=== PATIENT | female | born 1980 | race Caucasian/White ===

== ENCOUNTER → 2017-06-04 | Outpatient (CLI) | payer BC ==
--- NOTE | 2017-06-04 16:10 | RAD ---
AP abdomen radiograph 06/04/2017 Clinical history: Abdominal pain and constipation since earlier today. An AP digital radiograph of the abdomen/pelvis was obtained. The lung bases are not included on this radiograph. The abdominal bowel gas pattern is nonobstructive. A moderate amount of stool is seen throughout the colon. No radiopaque calculus is seen. The osseous structures are grossly intact. Impression: Nonobstructive bowel gas pattern. A moderate amount of stool is seen throughout the colon.
== END | disposition home or self-care (01) ==
LOC: DXRAD 15:35
PROVIDERS: ATTEND Nurse Practitioner Family
DX: K59.00 Constipation, unspecified (principal)
CPT/HCPCS: 74000

== ENCOUNTER 2017-08-03 23:03 | Emergency (ER) | payer BC ==
[~2017-08-03] VITALS: Ht 177.8 cm; Wt 74.4 kg
[2017-08-03 23:03] VITALS: BP 138/83
[2017-08-03] MEDS ORDERED: SIMETHICONE 80 MG TAB.CHEW PO PRN (23:45)
[2017-08-03] MEDS ORDERED: LIDO:MAALOX 1:1 20 ML SINGLE DOSE PO ONE (23:45)
[2017-08-03] MEDS ORDERED: IV NORMAL SALINE 1,000ML 1,000 ML IV SCH (23:51)
[2017-08-04] MEDS ORDERED: FAMOTIDINE 20 MG/2 ML VIAL IVP ONE
[2017-08-04] MEDS ORDERED: LIDO:MAALOX 1:1 20 ML SINGLE DOSE PO ONE
[2017-08-04 00:08] LABS: BASO % 0 % (0-3); EOS # 0.1 x10^3/uL (0.0-0.7); EOS % 1 % (0-3); HEMATOCRIT 38.4 % (36.0-47.0); HEMOGLOBIN 13.4 g/dL (12.0-15.5); LYMPH # 3.6 x10^3/uL (1.0-4.8); LYMPH % 36 % (24-48); MEAN CORPUSCULAR HEMOGLOBIN 31 pg (25-35); MEAN CORPUSCULAR HGB CONC 35 g/dL (31-37); MEAN CORPUSCULAR VOLUME 89 fL (79-100); MONO # 0.8 x10^3/uL (0.0-1.1); MONO % 8 % (0-9); NEUT # 5.6 x10^3uL (1.8-7.7); NEUT % 56 % (31-73); PLATELET COUNT 307 x10^3/uL (140-400); RED BLOOD COUNT 4.33 x10^6/uL (3.50-5.40); RED CELL DISTRIBUTION WIDTH 12.9 % (11.5-14.5); WHITE BLOOD COUNT 10.1 x10^3/uL (4.0-11.0)
[2017-08-04 00:20] LABS: ALBUMIN 4.3 g/dL (3.4-5.0); ALBUMIN/GLOBULIN RATIO 1.2 (1.0-1.7); CREATININE 0.8 mg/dL (0.6-1.0); GFR 81.2; POTASSIUM 3.6 mmol/L (3.5-5.1); TOTAL BILIRUBIN 0.4 mg/dL (0.2-1.0); TOTAL PROTEIN 7.9 g/dL (6.4-8.2)
[2017-08-04 00:25] LABS: BILIRUBIN,URINE NEG (NEG); CLARITY,URINE CLEAR; COLOR,URINE STRAW; GLUCOSE,URINE NEG (NEG)
[2017-08-04 00:26] LABS: BACTERIA,URINE FEW /HPF (0-FEW); NITRITE,URINE NEG (NEG); RBC,URINE 0 /HPF (0-2); SQUAMOUS EPITHELIAL CELL,UR FEW /LPF; UROBILINOGEN,URINE 0.2 mg/dL (0.2 mg/dL)
--- NOTE | 2017-08-04 01:03 | PHYS DOC ---
General Chief Complaint: ABDOMINAL PAIN Stated Complaint: ABDOMINAL PAIN,ACID REFLEX Time Seen by MD: 23:06 Source: patient Exam Limitations: no limitations Problems: History of Present Illness Initial Comments Pt is 37/F to ED c/o abdominal pain and reflux. Pt states for past few hours she's had left sided abdominal discomfort with burping and burning radiating up her chest to her throat. She has prior history of GERD and tries to observe GERD diet. She denies any n/v/d denies recent PO intake last BM today "normal." ED VSS, pt is dramatic. No urinary symptoms, no etoh/NSAIDs pain "moderate" burning. No prearrival treatment has history of "intestine surgery." No fever/chills/travel/bad food exposure. Timing/Duration: 1-3 hours Severity: moderate Modifying Factors: worse with eating Associated Symptoms: other Allergies: Coded Allergies: amoxicillin (Verified Allergy, Unknown, 08/03/17) clavulanic acid (Verified Allergy, Unknown, 08/03/17) nitrofurantoin (Verified Allergy, Unknown, 08/03/17) Past Medical History Medical History: other (anxiety, GERD) Surgical History: other ("intestine surgery") Social History Smoker: non-smoker Alcohol: none Drugs: none Review of Systems Constitutional: denies chills, denies diaphoresis, denies fever, denies malaise Respiratory: denies cough, denies shortness of breath Cardiovascular: denies chest pain, denies palpitations Gastrointestinal: see HPI Genitourinary: denies dysuria, denies frequency, denies hematuria Musculoskeletal: denies back pain, denies joint swelling, denies neck pain Psychiatric/Neurological: denies headache, denies numbness, denies paresthesia Hematologic/Lymphatic: denies blood clots, denies easy bleeding, denies easy bruising Physical Exam General Appearance: no apparent distress (anxious) Ear, Nose, Throat: hearing grossly normal, normal ENT inspection, normal pharynx Neck: non-tender, supple Respiratory: normal breath sounds, no respiratory distress Cardiovascular: normal peripheral pulses, regular rate, rhythm Gastrointestinal: soft (ND, BS normal, LUQ/epigastric pain to light skin touch , neg mcburney/shane) Back: no CVA tenderness, no vertebral tenderness Extremities: non-tender, normal inspection Neurologic/Psychiatric: 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 Simethicone/GI cocktail given PO 0102: Time in department 1h 59min, lipase remains pending. Pt with prolonged ED course due to laboratory delay. Pt requesting discharge as she feels better, simultaneously lipase is resulted. UA with SE contamination and trace LE, but given lack of suprapubic/flank pain /tenderness will await C/S. Pt expressed agreement/understanding with treatment plan. Departure Time of Disposition: : Disposition: HOME, SELF-CARE Diagnosis: abdominal pain, GERD Condition: GOOD Patient Instructions: Gastroesophageal Reflux Disease, Adult, [id number] Additional Instructions: Continue GERD precautions (see handout). OTC pepcid and simethicone for GERD and gas discomfort as needed. Aggressive hydration with gatorade, water, to prevent dehydration. Follow up with your doctor in 3-5 days for recheck and urine culture results. Return to ED with new or changing symptoms. JULISA RADER DO Aug 04, 2017 01:02
[2017-08-04] MEDS ORDERED: SIME80TA14 PO (01:25)
[2017-08-04] MEDS ORDERED: ONDANSETRON 4MG ODT 4TABLET STARTPACK. PO ONE ×2 (01:29→01:30)
--- NOTE | 2017-08-04 07:19 | RAD ---
Acute abdomen series with chest, 3 views, 08/04/2017: History: Left upper quadrant pain and nausea The abdominal gas pattern is unremarkable. No free air is seen in the abdomen. There is no evidence of organomegaly or abnormal abdominal calcification. The heart size is normal. The lungs are clear. There is no evidence of pleural fluid. IMPRESSION: No acute abdominal abnormality is detected.
== END 2017-08-04 01:35 | disposition home or self-care (01) ==
LOC: ER 23:03
DX: K21.9 Gastro-esophageal reflux disease without esophagitis (principal); F41.9 Anxiety disorder, unspecified; Z88.1 Allergy status to other antibiotic agents; Z88.8 Allergy status to other drugs, medicaments and biological substances
CPT/HCPCS: 36415; 74022; 80053; 81001; 83690; 85025; 87086; 96361; 96374; 99285; Q0162; S0028; J7030

== ENCOUNTER → 2019-10-07 | Outpatient (CLI) | payer BC ==
[~2019-10-07] MED LIST: SIME80TA14 PO
[2019-10-07 15:18] LABS: BASO % 0 % (0-3); EOS % 0 % (0-3); HEMATOCRIT 40.8 % (36.0-47.0); HEMOGLOBIN 13.8 g/dL (12.0-15.5); LYMPH # 1.6 x10^3/uL (1.0-4.8); LYMPH % 19 % (24-48); MEAN CORPUSCULAR HEMOGLOBIN 31 pg (25-35); MEAN CORPUSCULAR HGB CONC 34 g/dL (31-37); MEAN CORPUSCULAR VOLUME 92 fL (79-100); MONO # 0.8 x10^3/uL (0.0-1.1); MONO % 9 % (0-9); NEUT # 6.2 x10^3uL (1.8-7.7); NEUT % 71 % (31-73); PLATELET COUNT 296 x10^3/uL (140-400); RED BLOOD COUNT 4.43 x10^6/uL (3.50-5.40); RED CELL DISTRIBUTION WIDTH 13.2 % (11.5-14.5); WHITE BLOOD COUNT 8.7 x10^3/uL (4.0-11.0)
== END | disposition home or self-care (01) ==
LOC: LAB 13:27
PROVIDERS: ATTEND Nurse Practitioner Women's Health
DX: R53.83 Other fatigue (principal)
CPT/HCPCS: 36415; 84443; 85025

== ENCOUNTER → 2020-06-15 | Outpatient (CLI) | payer BC ==
[~2020-06-15] MED LIST changes: +OMEP20CA16 PO; +PANT40TA3 PO
== END | disposition home or self-care (01) ==
LOC: LAB 08:00
PROVIDERS: ATTEND Registered Nurse
DX: Z01.818 Encounter for other preprocedural examination (principal); Z11.59 Encounter for screening for other viral diseases; K21.9 Gastro-esophageal reflux disease without esophagitis; R13.10 Dysphagia, unspecified
CPT/HCPCS: U0003-CS

== ENCOUNTER → 2020-06-18 | Day surgery (SDC) | payer BC ==
[~2020-06-18] MED LIST changes: +IPRATRPIUM/ALBUTEROL 0.5/2.5MG 3 ML NEBU. NEB PRN; +IV RINGERS SOLUTION,LACTATED 1,000 ML IV SCH; +MIDAZOLAM HCL PF 2 MG/2 ML VIAL. IV ONE; +ONDANSETRON PF 4 MG/2 ML VIAL. IV PRN; +PROPOFOL 10,000 MCG/ML (20ML) VIAL IV ONE
[2020-06-18 13:14] VITALS: BP 120/78
== END | disposition home or self-care (01) ==
LOC: SURG 10:33
PROVIDERS: ATTEND Internal Medicine Gastroenterology
DX: R13.10 Dysphagia, unspecified (principal); K29.50 Unspecified chronic gastritis without bleeding; K21.9 Gastro-esophageal reflux disease without esophagitis; F41.9 Anxiety disorder, unspecified; K31.89 Other diseases of stomach and duodenum; Z79.899 Other long term (current) drug therapy; Z98.890 Other specified postprocedural states; Z88.8 Allergy status to other drugs, medicaments and biological substances; Z88.1 Allergy status to other antibiotic agents
CPT/HCPCS: 43239; 43450; 81025; 88305; 88342; J2704; J7120; 94640

== ENCOUNTER → 2020-07-07 | Outpatient (CLI) | payer BC ==
[2020-06-18 13:14] VITALS: BP 120/78
[~2020-07-07] MED LIST changes: -IPRATRPIUM/ALBUTEROL 0.5/2.5MG 3 ML NEBU. NEB PRN; -IV RINGERS SOLUTION,LACTATED 1,000 ML IV SCH; -MIDAZOLAM HCL PF 2 MG/2 ML VIAL. IV ONE; -ONDANSETRON PF 4 MG/2 ML VIAL. IV PRN; -PROPOFOL 10,000 MCG/ML (20ML) VIAL IV ONE
--- NOTE | 2020-07-07 12:25 | RAD ---
EXAM: Abdomen sonogram. HISTORY: Left upper quadrant pain. TECHNIQUE: Sonographic imaging of the abdomen was performed. COMPARISON: None. FINDINGS: The liver is normal in size. No focal hepatic lesion is seen. The common bile duct is normal in caliber. The gallbladder is unremarkable. The kidneys are normal in size. The pancreas, spleen, aorta and inferior vena cava are unremarkable. IMPRESSION: Unremarkable abdomen sonogram. Electronically signed by: Selam Samano MD (07/07/2020 12:23 PM) [facility]
== END | disposition home or self-care (01) ==
LOC: US 09:45
PROVIDERS: ATTEND Internal Medicine Gastroenterology
DX: R10.12 Left upper quadrant pain (principal)
CPT/HCPCS: 76700

== ENCOUNTER → 2020-07-16 | Outpatient (CLI) | payer BC ==
[2020-06-18 13:14] VITALS: BP 120/78
--- NOTE | 2020-07-16 13:50 | RAD ---
EXAM: Nuclear gastric emptying scan. HISTORY: Pain. COMPARISON: None. TECHNIQUE: Serial static images were obtained over the stomach following oral administration of 2 mCi 99m-Tc sulfur colloid. FINDINGS: The stomach empties into the small bowel without evidence of reflux in the area of the esophagus. There is 56 percent retained tracer activity within stomach at one hour (normal 34.8 percent to 91 percent). There is 21 percent retained tracer activity within stomach at 2 hours (normal 2.7 percent to 60 percent). There is 10 percent retained tracer activity within stomach at 3 hours (normal 0.5 percent to 28 percent). There is 5 percent retained tracer activity within stomach at 4 hours (normal 0.0 percent to 10 percent). The estimated time for half emptying of gastric contents, i.e. 'gastric emptying time' is 69 minutes (normal is 66 +/- 22 minutes). IMPRESSION: Normal gastric emptying scan. Electronically signed by: Selam Samano MD (07/16/2020 1:47 PM) [id number]
== END | disposition home or self-care (01) ==
LOC: NM 08:20
PROVIDERS: ATTEND Internal Medicine Gastroenterology
DX: R10.9 Unspecified abdominal pain (principal)
CPT/HCPCS: 78264; A9541

== ENCOUNTER → 2020-07-27 | Outpatient (CLI) | payer BC ==
[2020-06-18 13:14] VITALS: BP 120/78
== END | disposition home or self-care (01) ==
LOC: LAB 13:56
PROVIDERS: ATTEND Registered Nurse
DX: Z01.812 Encounter for preprocedural laboratory examination (principal); Z12.11 Encounter for screening for malignant neoplasm of colon; Z20.828 Contact with and (suspected) exposure to other viral communicable diseases
CPT/HCPCS: U0003-CS

== ENCOUNTER → 2020-07-30 | Day surgery (SDC) | payer BC ==
[~2020-07-30] MED LIST changes: +IPRATRPIUM/ALBUTEROL 0.5/2.5MG 3 ML NEBU. NEB PRN; +IV RINGERS SOLUTION,LACTATED 1,000 ML IV SCH; +LIDOCAINE 2% PF 5 ML VIAL. ONE; +MIDAZOLAM HCL PF 2 MG/2 ML VIAL. IV ONE; +MIDAZOLAM HCL PF 2 MG/2 ML VIAL. ONE; +ONDANSETRON PF 4 MG/2 ML VIAL. IV PRN; +PROPOFOL 10,000 MCG/ML (20ML) VIAL IV ONE
[2020-07-30 11:41] LABS: U PREG PATIENT NEGATIVE (NEG)
[2020-07-30 13:45] VITALS: BP 121/78
== END | disposition home or self-care (01) ==
LOC: SURG 10:54
PROVIDERS: ATTEND Internal Medicine Gastroenterology
DX: K62.5 Hemorrhage of anus and rectum (principal); R19.4 Change in bowel habit; K64.8 Other hemorrhoids; K21.9 Gastro-esophageal reflux disease without esophagitis; F41.9 Anxiety disorder, unspecified; Z79.899 Other long term (current) drug therapy; Z88.1 Allergy status to other antibiotic agents; Z88.8 Allergy status to other drugs, medicaments and biological substances; Z98.890 Other specified postprocedural states
CPT/HCPCS: 45378; 81025; J2001; J2250; J2704; J3010; J7120

== ENCOUNTER 2020-10-11 13:54 | Emergency (ER) | payer BC ==
[~2020-10-11] VITALS: Ht 180.3 cm; Wt 78.0 kg
[~2020-10-11 13:54] MED LIST changes: -IPRATRPIUM/ALBUTEROL 0.5/2.5MG 3 ML NEBU. NEB PRN; -IV RINGERS SOLUTION,LACTATED 1,000 ML IV SCH; -LIDOCAINE 2% PF 5 ML VIAL. ONE; -MIDAZOLAM HCL PF 2 MG/2 ML VIAL. IV ONE; -MIDAZOLAM HCL PF 2 MG/2 ML VIAL. ONE; -ONDANSETRON PF 4 MG/2 ML VIAL. IV PRN; -PROPOFOL 10,000 MCG/ML (20ML) VIAL IV ONE
--- NOTE | 2020-10-11 14:04 | PHYS DOC ---
Past History Past Medical History: Anxiety, GERD Past Surgical History: Other Alcohol Use: None Drug Use: None Adult General HPI HPI Patient is a 40-year-old Covid positive patient who presents for shortness of breath. States she was diagnosed with Covid 5 days ago, is currently on day 7 of symptoms. Has classic URI-like symptoms with shortness of breath and dry nonproductive cough. Patient reports she is concerned about potential developing pneumonia as she feels weak and fatigued. No fever, no syncope, no falls, no chest pain, no productive cough, no abdominal pain, no nausea vomit diarrhea, no history of hypercoagulable conditions Review of Systems Review of Systems Fourteen body systems of review of systems have been reviewed. See HPI for pertinent positives and negative responses, other borrero all other systems are negative, non-pertinent or non-contributory Allergies Allergies Allergies Coded Allergies Type Severity Reaction Last Updated Verified amoxicillin Allergy Unknown 06/18/20 Yes clavulanic acid Allergy Unknown 08/03/17 Yes nitrofurantoin Allergy Unknown 08/03/17 Yes Physical Exam Physical Exam General: Appears well, non toxic, and comfortable Skin: Warm, dry. Normal for ethnicity. HEENT: Atraumatic. PERRLA. Rhinorrhea and congestion. Nasal turbinates boggy b/l. Moist mucous membranes. Uvula midline. Maintaining secretions. No phonation changes. Neck: Trachea midline. Normal ROM. No stridor. Respiratory: Normal WOB. CTAB w/o w/r/r. No tachypnea. Cardiovascular: Regular rate and rhythm. Normal peripheral perfusion. Abdomen: Soft. Non tender. No distension. Back: Normal ROM. Musculoskeletal: No swelling or deformity. Neuro: Alert and oriented x 4. MAEE. Lymph: No cervical LAD. Psych: Anxious affect with normal mood Current Patient Data Vital Signs Vital Signs Date Time Temp Pulse Resp B/P (MAP) Pulse Ox O2 Delivery O2 Flow Rate FiO2 10/11/20 14:05 98.1 86 16 154/96 (115) 100 EKG EKG [] Radiology/Procedures Radiology/Procedures EXAM: Chest, single view. HISTORY: Shortness of breath. Covid 19. COMPARISON: None. FINDINGS: A frontal view of the chest is obtained. There is no infiltrate, pleural effusion or pneumothorax. The heart is normal in size. IMPRESSION: No acute pulmonary finding. Electronically signed by: Selam Samano MD (10/11/2020 2:47 PM) [id number] Heart Score HEART Score for Chest Pain: HEART Score for Chest Pain Response (Comments) Value History Slighlty/Non-Suspicious 0 Age < 45 0 Risk Factors No Risk Factors 0 Total 0 Risk Factors: Risk Factors: DM, Current or recent (<one month) smoker, HTN, HLP, family history of CAD, obesity. Risk Scores: Risk Factors: DM, Current or recent (<one month) smoker, HTN, HLP, family history of CAD, obesity. Course & Med Decision Making Course & Med Decision Making Given History and Exam I have a lower suspicion for: Emergent CardioPulmonary causes [such as Acute Asthma or COPD Exacerbation, acute Heart Failure or exacerbation, PE, PTX, atypical ACS, PNA]. Emergent Otolaryngeal causes [such as FINGERNAIL SCULPTOR, RPA, Ludwigs, Epiglottitis, EBV]. 1 view chest x-ray performed and unremarkable for any emergent and/or surgical pathology Discussed most likely diagnosis of symptomatic COVID-19 infection. Patient has underlying anxiety which I feel is exacerbating current condition Based on vitals and exam they are nontoxic and stable for discharge. Discussed with the patient all findings and diagnostic testing as well as the need to follow up with PCP for further evaluation and treatment when safe to do so or return to the ED if any new or worsening symptoms. Strict return precautions were also discussed at length with good understanding by patient. Patient voiced understanding and agreement with the plan. Hemodynamically stable at time of disposition. Dragon Disclaimer Dragon Disclaimer This electronic medical record was generated, in whole or in part, using a voice recognition dictation system. PERC Rule for PE PERC Rule for PE Response (Comments) Value Age > 50: No 0 HR > 100: No 0 Sa02 on room air <95%: No 0 Unilateral leg swelling: No 0 Hemoptysis: No 0 Recent surgery or trauma: No 0 Prior PE or DVT: No 0 Hormone use: No 0 Total 0 Departure Departure: Impression: Primary Impression: COVID-19 Disposition: 01 DC HOME SELF CARE/HOMELESS Condition: STABLE Referrals: SELAM BADILLO MD (PCP) Additional Instructions: You were seen for symptoms classic for COVID-19 infection. Your physical exam was reassuring. Your chest x-ray was normal. Continue to quarantine yourself at home away from all other individuals, especially those who are elderly or have any other chronic health issues or an immunocompromised status. You should return to the ED if you develop worsening cough, shortness of breath, chest pain, or any other new or concerning symptoms. Alternate Tylenol and ibuprofen as needed for body aches and pain. You should make sure to drink plenty of fluids and get plenty of rest. As advised, I would start taking a daily antihistamine that is nonsedating such as Claritin or Zyrtec for supportive/symptomatic care of your dry nonproductive cough TEE DANIELS DO Oct 11, 2020 14:04
--- NOTE | 2020-10-11 14:50 | RAD ---
EXAM: Chest, single view. HISTORY: Shortness of breath. Covid 19. COMPARISON: None. FINDINGS: A frontal view of the chest is obtained. There is no infiltrate, pleural effusion or pneumo thorax. The heart is normal in size. IMPRESSION: No acute pulmonary finding. Electronically signed by: Selam Samano MD (10/11/2020 2:47 PM) [id number]
[2020-10-11 15:35] VITALS: BP 125/87
== END 2020-10-11 15:35 | disposition home or self-care (01) ==
LOC: ER 13:54
DX: U07.1 COVID-19 (principal); F41.9 Anxiety disorder, unspecified; K21.9 Gastro-esophageal reflux disease without esophagitis; Z88.1 Allergy status to other antibiotic agents; Z88.8 Allergy status to other drugs, medicaments and biological substances
CPT/HCPCS: 71045; 99283

== ENCOUNTER → 2020-11-23 | Outpatient (CLI) | payer BC ==
[2020-11-23 23:07] LABS: ESTRADIOL LEVEL 292.6 pg/mL (.)
[2020-11-24 00:08] LABS: FSH 3.4 mIU/mL (.); LUTEINIZING HORMONE 7.3 mIU/mL (.)
[2020-11-24 01:08] LABS: HEMOGLOBIN A1C 5.3 % (4.8-5.6)
== END ==
LOC: LAB 14:24
PROVIDERS: ATTEND Nurse Practitioner Women's Health
DX: N92.6 Irregular menstruation, unspecified (principal)
CPT/HCPCS: 36415; 82670; 83001; 83002; 83036; 84443

== ENCOUNTER → 2020-11-30 | Outpatient (CLI) | payer BC ==
--- NOTE | 2020-11-30 18:39 | RAD ---
Pelvic ultrasound INDICATION: Pelvic pain COMPARISON: None. TECHNIQUE: Transabdominal and endovaginal ultrasound of the pelvis was performed using grayscale and spectral Doppler imaging. Distended urinary bladder was use as an acoustic window on the transabdomin al images. FINDINGS: Uterus measures 8.9 x 5.0 x 4.2 cm. Multiple cysts in the lower uterine segment are identified, suggestive of nabothian cysts. The endometrial stripe measures 9.6 mm. The right ovary measures 1.9 x 1.6 x 1.2 cm and demonstrates normal blood flow on spectral Doppler im aging. The left ovary measures 2.1 x 2.6 x 2.3 cm and demonstrates normal blood flow. There are paraovarian cysts on the left measuring 2.6 x 3.1 x 2.8 cm. IMPRESSION: 1. No specific cause for pelvic pain identified. There is no evidence of ovarian torsion. 2. Patient has a 3 cm left paraovarian cyst Electronically signed by: Dutch Hyatt MD (11/30/2020 6:37 PM) [id number]
== END ==
LOC: US 10:54
PROVIDERS: ATTEND Nurse Practitioner Women's Health
DX: N83.292 Other ovarian cyst, left side (principal)
CPT/HCPCS: 76830; 76856

== ENCOUNTER → 2021-01-18 | Outpatient (CLI) | payer BC ==
--- NOTE | 2021-01-18 18:49 | CARD ---
MR#: [id number] Date of Study: 01/18/2021 Ordering Physician: YONATHAN BADILLO, Referring Physician: YONATHAN BADILLO, Tech: Silvina Alvarez, [facility] APPROVED REPORT EXAM: Two-dimensional and M-mode echocardiogram with Doppler and color Doppler. Other Information Quality : AverageHR: 66bpm INDICATION Dyspnea Chest Pain 2D DIMENSIONS RVDd3.6 (2.9-3.5cm)Left Atrium(2D)2.8 (1.6-4.0cm) IVSd0.8 (0.7-1.1cm)Aortic Root(2D)2.6 (2.0-3.7cm) LVDd4.3 (3.9-5.9cm)LVOT Diameter1.9 (1.8-2.4cm) PWd0.9 (0.7-1.1cm)LVDs3.0 (2.5-4.0cm) FS (%) 29.6 %SV47.1 ml LVEF(%)56.9 (>50%) Aortic Valve AoV Peak Piyush.142.2cm/sAoV VTI36.0cm AO Peak GR.8.1mmHgLVOT Peak Piyush.130.5cm/s LVOT VTI 33.01cmAO Mean GR.5mmHg JULIANNA (VMAX)2.92gs0RVO (VTI)2.61cm2 Mitral Valve MV E Aucqymwi348.6cm/sMV DECEL [id number] MV A Zxweslcc55.5cm/sE/A Ratio1.4 Pulmonary Valve PV Peak Zxpccctn68.4cm/sPV Peak Grad.3mmHg Tricuspid Valve TR P. Gggninqk090gu/sRAP BWQTDZTM7taSv TR Peak Gr.95shMtHZPS15vmXg Pulmonary Vein S1 Udlfpqsx74.2cm/sD2 Ftxbkitw85.4cm/s LEFT VENTRICLE The left ventricle is normal size. There is normal left ventricular wall thickness. The left ventricu lar systolic function is normal. The Ejection Fraction is 55-60%. There is normal LV segmental wall m otion. The left ventricular diastolic function and filling is normal for age. RIGHT VENTRICLE The right ventricle is normal size. There is normal right ventricular wall thickness. The right ventr icular systolic function is normal. ATRIA The left atrium size is normal. The right atrium size is normal. The interatrial septum is intact wit h no evidence for an atrial septal defect or patent foramen ovale as noted on 2-D or Doppler imaging. AORTIC VALVE The aortic valve is normal in structure and function. Doppler and Color Flow revealed no significant aortic regurgitation. There is no significant aortic valvular stenosis. Calculated aortic valve area is 2.9 cm2 with maximum pressure gradient of 8 mmHg and mean pressure gradient of 5 mmHg. MITRAL VALVE The mitral valve is normal in structure and function. There is no evidence of mitral valve prolapse. There is no mitral valve stenosis. Doppler and Color-flow revealed trace mitral regurgitation. TRICUSPID VALVE The tricuspid valve is normal in structure and function. Doppler and Color Flow revealed trace tricus pid regurgitation with an estimated PAP of 30 mmHg. There is no tricuspid valve stenosis. PULMONIC VALVE The pulmonary valve is normal in structure and function. Doppler and Color Flow revealed trace pulmon ic valvular regurgitation. GREAT VESSELS The aortic root is normal in size. The IVC is normal in size and collapses >50% with inspiration. PERICARDIAL EFFUSION There is no evidence of significant pericardial effusion. Critical Notification Critical Value: No <Conclusion> The left ventricular systolic function is normal. The Ejection Fraction is 55-60%. There is normal LV segmental wall motion. Trace mitral regurgitation. Trace tricuspid regurgitation with an estimated PAP of 30 mmHg. There is no evidence of significant pericardial effusion. Signed by : Cj Rainey, Electronically Approved : 01/18/2021 18:48:38
== END ==
LOC: ECHO 10:44
PROVIDERS: ATTEND Family Medicine
DX: R07.89 Other chest pain (principal); Z86.16 Personal history of COVID-19
CPT/HCPCS: 93306

== ENCOUNTER → 2021-05-04 | Outpatient (CLI) | payer BC ==
--- NOTE | 2021-05-04 17:55 | RAD ---
US PELVIS W/TV History: Follow-up ovarian cyst Comparison: Pelvic ultrasound 11/30/2020 Technique: Sonographic examination of the pelvis was performed with transabdominal and transvaginal t echnique. Findings: Uterus- Size: 9.2 x 4.4 x 5.6 cm. Uterine parenchyma: Homogeneous without fibroids. Cervix: Multiple benign nabothian cysts measuring up to 1.8 cm diameter. Endometrium- Endometrial Stripe: Mildly heterogeneous. No obvious mass or abnormal blood flow. Thickness: 14 mm. Adnexa- Right Ovary: Contains a 2.9 cm dominant follicle. Size: 3.6 x 2.0 x 2.5 cm. Doppler: Normal. Left Ovary: Contains a 2.6 cm cyst. Adjacent paraovarian 3.3 x 2.6 x 3.4 cm cyst Size: 4.1 x 3.0 x 2.9 cm. Doppler: Normal. Mass: No abnormal adnexal masses. Fluid: No abnormal free fluid in the pelvis. Additional findings: None. Impression: 1. Redemonstrated left paraovarian cyst measuring up to 3.4 cm. 2. Multiple benign nabothian cysts at the cervix. Electronically signed by: Jameel Cao MD (05/04/2021 5:53 PM) [id number]
== END ==
LOC: US 12:42
PROVIDERS: ATTEND Nurse Practitioner Women's Health
DX: N83.202 Unspecified ovarian cyst, left side (principal); N88.8 Other specified noninflammatory disorders of cervix uteri
CPT/HCPCS: 76830; 76856